=== PATIENT | female | born 1960 | race Caucasian/White ===

== ENCOUNTER 2018-03-17 09:35 | Day surgery (SDC) | payer OTHER ==
[2018-03-17] MEDS ORDERED: Lactated Ringers 1,000 ML IV SCH (09:45)
[2018-03-17] MEDS ORDERED: Sodium Chloride 0.9% 10 ML Syringe FLUSH PRN (09:45)
--- NOTE | 2018-03-17 10:52 | PCM.HPR ---
H & P Addendum review - H & P Addendum Review Date of Original H & P: 03/07/18 Date Reviewed: 03/17/18 Time Reviewed: 10:51 Patient was Examined: No Changes
[2018-03-17] MEDS ORDERED: fentaNYL 100 MCG/2 ML SDV ONE ×2 (11:05→11:06)
[2018-03-17] MEDS ORDERED: Midazolam 1 MG/ML 2 ML SDV ONE ×2 (11:05→11:06)
[2018-03-17] MEDS ORDERED: Propofol 200 MG/20 ML SDV ONE ×2 (11:05→11:06)
--- NOTE | 2018-03-17 11:32 | PCM.OPNOTE ---
- General Post-Op/Procedure Note Date of Surgery/Procedure: 03/17/18 Operative Procedure(s): Colonoscopy Findings: Sig tics Pre Op Diagnosis: Screening Post-Op Diagnosis: sig tics Anesthesia Technique: MAC Primary Surgeon: Trevor Ellis Anesthesia Provider: Nancy Hatch EBHerve in mLs: 0 Complications: None Condition: Good Free Text/Narrative:: Intake & Output 03/16/18 03/17/18 03/17/18 22:59 06:59 14:59 Intake Total 400 Balance 400
--- NOTE | 2018-03-17 14:16 | OR ---
Date of Procedure: 03/17/2018 PREOPERATIVE DIAGNOSIS: Colon screening. POSTOPERATIVE DIAGNOSIS: Sigmoid diverticulosis. PROCEDURE: Screening colonoscopy. ANESTHESIA: IV sedation. DESCRIPTION OF PROCEDURE: The patient was brought to the procedure room where she was placed on her left side and IV sedation administered. Digital rectal exam was performed which was normal. Colonoscope was inserted and advanced to the level of the cecum without difficulty. Cecal position was confirmed by identifying the appendiceal lumen and ileocecal valve. Prep was good and surfaces were well visualized. Upon withdrawing the scope, the ascending, transverse, and descending colon were normal in appearance. Sigmoid colon has multiple small diverticula present. Rectum was normal and retroflexion was normal. Air was removed and the scope withdrawn. The patient tolerated the procedure well and returned to recovery in stable condition. Recommend routine colon screening again in 10 years. GERRY BAPTISTE MD /[id number]
== END 2018-03-17 12:20 | disposition home or self-care (01) ==
LOC: LL.SDS 09:35
PROVIDERS: ATTEND Surgery
DX: Z12.11 Encounter for screening for malignant neoplasm of colon (principal); K57.30 Diverticulosis of large intestine without perforation or abscess without bleeding; K21.9 Gastro-esophageal reflux disease without esophagitis; G47.00 Insomnia, unspecified; Z79.899 Other long term (current) drug therapy; Z79.82 Long term (current) use of aspirin
CPT/HCPCS: J2250; J2704; J3010